=== PATIENT | female | born 1965 | race Caucasian/White ===

== ENCOUNTER → 2020-07-23 | Day surgery (SDC) | payer OTHER ==
[~2020-07-23] MED LIST: ALDACTONE50 MG PO; ASCORBIC ACID500 MG PO; BRIN20TA PO; NP THYROID60 MG PO; PROGESTERONE200 MG PO; TRAZODONE HCL50 MG PO; TRULANCE3 MG PO; VITAMIN D325 MC1 PO; VYVANSE50 MG PO; ZINC50 M1 PO
[2020-07-23 07:50] LABS: HCT 46.3 % (37.0-47.0); HGB 14.9 g/dl (12.5-16.0); MCHC 32.2 g/dL (32.0-36.0); MPV 11.7 fL (6.0-9.5); RBC 5.51 M/uL (4.20-5.40); RDW 14.7 % (11.5-14.0); WBC 9.1 K/uL (4.0-10.5)
[2020-07-23 08:01] LABS: BILIRUBIN - TOTAL 0.9 mg/dL (0.2-1.0); BUN/CREAT RATIO (CALC) 17.4 RATIO; CREATININE 0.86 mg/dL (0.51-0.95); GLOBULIN (CALCULATION) 3.6 g/dL; TOTAL PROTEIN 7.6 g/dL (6.4-8.2)
== END | disposition home or self-care (01) ==
LOC: FAS 07:00
PROVIDERS: Surgery
DX: Z12.11 Encounter for screening for malignant neoplasm of colon (principal); K63.5 Polyp of colon; I10 Essential (primary) hypertension; F32.9 Major depressive disorder, single episode, unspecified; K21.9 Gastro-esophageal reflux disease without esophagitis; Z68.41 Body mass index [BMI] 40.0-44.9, adult; D64.9 Anemia, unspecified; E66.01 Morbid (severe) obesity due to excess calories; E03.9 Hypothyroidism, unspecified
CPT/HCPCS: 36415; 80053; J2250; J2704; J7120; U0002